=== PATIENT | female | born 1975 | race American Indian/Alaskan Native ===

== ENCOUNTER 2017-05-08 20:15 | Emergency (ER) | payer SELFPAY ==
[2017-05-08 20:29] VITALS: BP 158/93
[2017-05-08 22:27] LABS: Bacteria,Urine 2+ /HPF (Negative); Bilirubin,Urine NEG (Negative); Blood,Urine MOD (Negative); Ketones,Urine NEG (Negative); Leukocyte Esterase,Urine LG (Negative); Mucus,Urine 2+ /HPF; Nitrite,Urine NEG (Negative); Protein,Urine <15 mg/dL mg/dL (Negative); Urobilinogen,Urine < 2.0 mg/dL (<2.0)
== END 2017-05-08 21:16 | disposition left against medical advice (07) ==
LOC: ED 20:15
DX: I10 Essential (primary) hypertension (principal); Z53.21 Procedure and treatment not carried out due to patient leaving prior to being seen by health care provider
CPT/HCPCS: 81001; 81025

== ENCOUNTER 2017-05-13 09:03 | Emergency (ER) | payer SELFPAY ==
--- NOTE | 2017-05-13 09:59 | Emergency Department Report ---
Chief Complaint: Urogenital-Female Stated Complaint: HIGH BP/PELVI PAIN Time Seen by Provider: 05/13/17 09:58 - HPI History of Present Illness: Patient reports that she has high blood pressure and she is out of her blood pressure medication and she is having vaginal discharge but she says she had STD testing [facility] the [facility] about 2 weeks ago and everything came back negative but she is not sure if she had a chlamydia test. She says she is having discharged at small odorous. Denies any nausea or vomiting. Denies any urinary burning frequency or urgency. [place] fever or chills. Special. Is 90 03/17/2017. - ROS Review of Systems: All systems is negative unless stated in HPI above - Exam Vital Signs: Vital Signs 05/13/17 09:33 Temperature 98.0 F Pulse Rate 64 Blood Pressure 151/88 O2 Sat by Pulse 100 Oximetry Physical Exam: Gen.: This is a 41-year-old female well-nourished well-developed in no acute distress. Abdomen: Nontender to palpate in all quadrants, no guarding rebound tenderness. Normal bowel sounds in all quadrants. MSE screening note: Focused history and physical exam performed. Due to findings the following was ordered:See MDM ED Disposition for MSE Condition: Stable
[2017-05-13 11:14] LABS: Bilirubin,Urine NEG (Negative); Blood,Urine NEG (Negative); Ketones,Urine NEG (Negative); Leukocyte Esterase,Urine TR (Negative); Nitrite,Urine NEG (Negative); Protein,Urine <15 mg/dL mg/dL (Negative); Urobilinogen,Urine < 2.0 mg/dL (<2.0)
[2017-05-13] MEDS ORDERED: XYLOCAINE 1% MPF 5 mL INFILTRATI ONE (12:10)
[2017-05-13] MEDS ORDERED: ROCEPHIN IM ONE (12:10)
[2017-05-13] MEDS ORDERED: ZITHROMAX PO ONE (12:10)
--- NOTE | 2017-05-13 12:25 | Emergency Department Report ---
ED Female HPI - General Chief complaint: Urogenital-Female Stated complaint: HIGH BP/PELVI PAIN Time Seen by Provider: 05/13/17 10:27 Source: patient Mode of arrival: Ambulatory Limitations: No Limitations - History of Present Illness Initial comments: This is a 41-year-old nontoxic, well nourished in appearance, no acute signs of distress presents to the ED complaining of vaginal discharge with odor 1 week. Patient describes discharge as followed her with white/yellow color. Patient states she has intercourse 1 week ago and of the symptoms and is concerned about an STD. Patient denies any dysuria, polyuria, hematuria. Patient denies any back pain, stiff neck, headache, chest pain, shortness of breath, nausea, vomiting, headache or stiff neck. She denies any allergies. PMH includes HTN and obesity. Patient stated she currently wants to be treated empirically for STD. Patient also stated she takes 10 mg of amlodipine daily and stated she is currently out of her medication and wants a refill. MD Complaint: vaginal discharge, possible STD -: Gradual, week(s) (1) Radiation: non-radiating Consistency: constant Improves with: none Worsens with: none Are you Now?: Yes Last Menstrual Period: 04/25/17 EDC: 01/30/18 Associated Symptoms: vaginal discharge. denies: vaginal bleeding, abdominal pain, nausea/vomiting, fever/chills, headaches, loss of appetite, dysuria, hematuria, rash, seizure, shortness of breath, syncope, weakness - Related Data Sexually active: Yes Previous Rx's Medication Instructions Recorded Last Taken Type Ferrous Sulfate [Feosol 325 MG tab] 325 mg PO QDAY #30 tablet 05/17/16 Unknown Rx HYDROcodone/APAP 5-325 [Glendo 1 each PO Q6HR PRN #30 tablet 05/17/16 Unknown Rx 5/325] Ibuprofen [Motrin] 800 mg PO Q8HR PRN #30 tablet 05/17/16 Unknown Rx Vit Calc,Iron,Folic 1 each PO DAILY #30 tablet 05/17/16 Unknown Rx [ Vitamins] Fluconazole [Diflucan TAB] 150 mg PO ONCE #1 tablet 05/19/16 Unknown Rx oxyCODONE /ACETAMINOPHEN [Percocet 1 tab PO Q6HR PRN #30 tablet 05/19/16 Unknown Rx 5/325] Amoxicillin/K Clav Tab [Augmentin 1 tab PO Q12HR #13 tab 05/26/16 Unknown Rx 875 mg] Labetalol [Normodyne TAB] 100 mg PO BID #60 tablet 05/26/16 Unknown Rx Ondansetron [Zofran Odt] 4 mg PO QID PRN #20 tab.rapdis 05/26/16 Unknown Rx HYDROcodone/APAP 5-325 [Glendo 1 each PO Q6HR PRN #10 tablet 09/15/16 Unknown Rx 5/325] Sulfamethoxazole/Trimethoprim 1 each PO BID #14 tablet 05/13/17 Unknown Rx [Bactrim Ds Tablet] Allergies Allergy/AdvReac Type Severity Reaction Status Date / Time No Known Allergies Allergy Verified 05/25/16 11:19 ED Review of Systems ROS: Stated complaint: HIGH BP/PELVI PAIN Other details as noted in HPI Constitutional: denies: chills, fever Eyes: denies: eye pain, eye discharge, vision change ENT: denies: ear pain, throat pain Respiratory: denies: cough, shortness of breath, wheezing Cardiovascular: denies: chest pain, palpitations Endocrine: no symptoms reported Gastrointestinal: denies: abdominal pain, nausea, diarrhea Genitourinary: discharge. denies: urgency, dysuria Musculoskeletal: denies: back pain, joint swelling, arthralgia Skin: denies: rash, lesions Neurological: denies: headache, weakness, paresthesias Psychiatric: denies: anxiety, depression Hematological/Lymphatic: denies: easy bleeding, easy bruising ED Past Medical Hx - Past Medical History Hx Hypertension: Yes ("WITH END OF ") Hx Heart Attack/AMI: No Hx Congestive Heart Failure: No Hx Diabetes: No Hx Deep Vein Thrombosis: No Hx Liver Disease: No Hx Renal Disease: No Hx Sickle Cell Disease: No Hx Seizures: No Hx Asthma: No Hx COPD: No Hx HIV: No Additional medical history: obesity - Surgical History Hx Pacemaker: No Hx Internal Defibrillator: No Additional Surgical History: x 3 - Social History Smoking Status: Current Every Day Smoker Substance Use Type: None - Medications Home Medications: Home Medications Medication Instructions Recorded Confirmed Last Taken Type Ferrous Sulfate [Feosol 325 MG tab] 325 mg PO QDAY #30 tablet 05/17/16 Unknown Rx HYDROcodone/APAP 5-325 [Glendo 1 each PO Q6HR PRN #30 tablet 05/17/16 Unknown Rx 5/325] Ibuprofen [Motrin] 800 mg PO Q8HR PRN #30 tablet 05/17/16 Unknown Rx Vit Calc,Iron,Folic 1 each PO DAILY #30 tablet 05/17/16 Unknown Rx [ Vitamins] Fluconazole [Diflucan TAB] 150 mg PO ONCE #1 tablet 05/19/16 Unknown Rx oxyCODONE /ACETAMINOPHEN [Percocet 1 tab PO Q6HR PRN #30 tablet 05/19/16 Unknown Rx 5/325] Amoxicillin/K Clav Tab [Augmentin 1 tab PO Q12HR #13 tab 05/26/16 Unknown Rx 875 mg] Labetalol [Normodyne TAB] 100 mg PO BID #60 tablet 05/26/16 Unknown Rx Ondansetron [Zofran Odt] 4 mg PO QID PRN #20 tab.rapdis 05/26/16 Unknown Rx HYDROcodone/APAP 5-325 [Glendo 1 each PO Q6HR PRN #10 tablet 09/15/16 Unknown Rx 5/325] Sulfamethoxazole/Trimethoprim 1 each PO BID #14 tablet 05/13/17 Unknown Rx [Bactrim Ds Tablet] ED Physical Exam - General Limitations: No Limitations General appearance: alert, in no apparent distress - Head Head exam: Present: atraumatic, normocephalic, normal inspection - Eye Eye exam: Present: normal appearance, PERRL, EOMI. Absent: scleral icterus, conjunctival injection, nystagmus, periorbital swelling, periorbital tenderness - ENT ENT exam: Present: normal exam, normal orophraynx, mucous membranes moist, TM's normal bilaterally, normal external ear exam - Neck Neck exam: Present: normal inspection, full ROM. Absent: tenderness, meningismus, lymphadenopathy, thyromegaly - Respiratory Respiratory exam: Present: normal lung sounds bilaterally. Absent: respiratory distress, wheezes, rales, rhonchi, stridor, chest wall tenderness, accessory muscle use, decreased breath sounds, prolonged expiratory - Cardiovascular Cardiovascular Exam: Present: regular rate, normal rhythm, normal heart sounds. Absent: bradycardia, tachycardia, irregular rhythm, systolic murmur, diastolic murmur, rubs, gallop - GI/Abdominal GI/Abdominal exam: Present: soft, normal bowel sounds. Absent: distended, tenderness, guarding, rebound, rigid, diminished bowel sounds - Rectal Rectal exam: Present: deferred - External exam: Present: normal external exam, other (rhinologist RN present during exam). Absent: erythema, swelling, lesions, lacerations, ecchymosis, bleeding Speculum exam: Present: normal speculum exam, cervical discharge, other ( rhinologist RN present during exam). Absent: erythema, vaginal discharge, vaginal bleeding, foreign body, tissue, laceration Bi-manual exam: Present: normal bi-manual exam, other (rhinologist RN present during exam). Absent: cervical motion tendernes, adnexal tenderness, adnexal mass, uterine enlargement, uterine tenderness - Extremities Exam Extremities exam: Present: normal inspection, full ROM, normal capillary refill. Absent: tenderness, pedal edema, joint swelling, calf tenderness - Back Exam Back exam: Present: normal inspection, full ROM. Absent: tenderness, CVA tenderness (R), CVA tenderness (L), muscle spasm, paraspinal tenderness, vertebral tenderness, rash noted - Neurological Exam Neurological exam: Present: alert, oriented X3, CN II-XII intact, normal gait, reflexes normal - Psychiatric Psychiatric exam: Present: normal affect, normal mood - Skin Skin exam: Present: warm, dry, intact, normal color. Absent: rash ED Course Vital Signs 05/13/17 09:33 Temperature 98.0 F Pulse Rate 64 Blood Pressure 151/88 O2 Sat by Pulse 100 Oximetry - Reevaluation(s) Reevaluation #1: 05/13/17 12:25 Patient is speaking in full sentences with no signs of distress noted. ED Medical Decision Making - Medical Decision Making 41-year-old female presents with UTI and possible STD exposure. Patient is stable and was examined by me. [employer] present during exam. Gonorrhea/ chlamydia has been obtained and currently is pending and patient was instructed to return in 3 days to obtain results of gonorrhea and chlamydia from medical records. UA has been obtained with leukocyte elevated. Patient received Rocephin and azithromycin empirically because patient states she was be treated empirically for STD. Patient was instructed to follow-up with a primary care doctor in 3-5 days or if symptoms worsen and continue return to emergency room as soon as possible possible. Patient is hemodynamically stable with stable vital signs. At time time of discharge, the patient does not seem toxic or ill in appearance. No acute signs of distress noted. Patient agrees to discharge treatment plan of care. No further questions noted by the patient. Critical care attestation.: If time is entered above; I have spent that time in minutes in the direct care of this critically ill patient, excluding procedure time. ED Disposition Clinical Impression: Possible exposure to STD UTI (urinary tract infection) Qualifiers: Urinary tract infection type: site unspecified Hematuria presence: without hematuria Qualified Code(s): N39.0 - Urinary tract infection, site not specified Disposition: TO HOME OR SELFCARE Is pt being admited?: No Does the pt Need Aspirin: No Condition: Stable Instructions: Urinary Tract Infection in Women (ED), Sulfamethoxazole/ Trimethoprim (By mouth), Safe Sex (ED) Additional Instructions: Follow-up with a primary care doctor in 3-5 days or if symptoms worsen and continue return to emergency room as soon as possible possible. Prescriptions: Sulfamethoxazole/Trimethoprim [Bactrim Ds Tablet] 1 each PO BID #14 tablet Referrals: PRIMARY MD ESPERANZA [Primary Care Provider] - 3-5 Days JARRETT CHIN MD [Staff Physician] - 3-5 Days [facility] [Outside] - 3-5 Days [facility] [Outside] - 3-5 Days Forms: Work/School Release Form(ED)
[2017-05-13 13:49] VITALS: BP 146/82
== END 2017-05-13 13:48 | disposition home or self-care (01) ==
LOC: ED 09:03
DX: N39.0 Urinary tract infection, site not specified (principal); I10 Essential (primary) hypertension; E66.9 Obesity, unspecified; F17.200 Nicotine dependence, unspecified, uncomplicated
CPT/HCPCS: 81003; 81025; 87210; 87591; 96372; 99284; J0696